=== PATIENT | female | born 1950 | race Caucasian/White ===

== ENCOUNTER 2016-11-26 06:55 | Inpatient (IN) | payer OTHER ==
[~2016-11-26] VITALS: Ht 170.2 cm; Wt 132.0 kg
[~2016-11-26 06:55] MED LIST: ACTOS15 MG PO; ASPIRIN81 M2 PO; BACTROBAN NASAL1 G1 BOTH NARES; CELEBREX200 MG PO; CELECOXIB200 MG PO; ENDOCET 5-3251 EACH PO; FERROUS SULFAT325 MG PO; FLEXERIL10 MG PO; HYDROCHLOROTHIA25 MG PO; HYDROCODON-ACE1 EAC7 PO; IRON325 M1 PO; KLOR-CON M2020 MEQ PO; LEXAPRO20 MG PO; LIPITOR80 MG PO; LISINOPRIL10 MG PO; LO-DOSE ASPIRIN81 M2 PO; LORCET 5-325 M1 EACH PO; LOVENOX40 MG/0.4 SC; METFORMIN HCL500 MG PO; METOPROLOL TAR100 MG PO; NEXIUM40 MG PO; OXYCODONE-ACET1 EACH PO; SYNTHROID125 MCG PO; SYNTHROID150 MCG PO; ZANTAC150 MG PO; ZETIA10 MG PO
[2016-11-26 07:33] LABS: POINT-OF-CARE METER ID UU14174212
[2016-11-26 07:44] VITALS: BP 162/72
[2016-11-26 12:40] LABS: POINT-OF-CARE METER ID UU13113675; POINT-OF-CARE USER ID 515036437
[2016-11-26 13:28] VITALS: BP 149/67
[2016-11-26 13:28] LABS: HEMATOCRIT 36.7 % (36.0-46.0); MCH 28.8 PG (29.0-34.0); MCHC 31.3 G/DL (30.0-36.0); MEAN PLAT.VOLUME 11.5 uM^3 (9.5-12.4); PLATELET COUNT 124 K/uL (156-360); RBC DIS.WIDTH-CV 13.9 % (11.8-14.6); RBC DIS.WIDTH-SD 47.1 % (39-53); RED BLOOD COUNT 3.99 M/uL (3.80-5.20); WHITE BLOOD COUNT 7.2 K/uL (4.1-10.2)
[2016-11-26 15:34] VITALS: BP 182/8
[2016-11-26 15:56] VITALS: BP 182/80
[2016-11-26 20:21] VITALS: BP 173/77
[2016-11-26 22:11] LABS: POINT-OF-CARE METER ID UU13113712
[2016-11-27 00:30] VITALS: BP 170/83
[2016-11-27 04:00] VITALS: BP 179/78
[2016-11-27 05:37] LABS: MCV 90.3 FL (83-99)
[2016-11-27 05:58] LABS: ANION GAP 12 MEQ/L (2-14); CHLORIDE 103 MEQ/L (99-109); GFR ESTIMATE (CALCULATED) > 59 mL/min/; GLUCOSE 179 mg/dL (70-99); SAMPLE HEMOLYSIS CHECK 0; SAMPLE ICTERIC CHECK 0; SAMPLE LIPEMIA CHECK 0; SODIUM 138 MEQ/L (136-147); UREA NITROGEN (BUN) 6 mg/dL (9-23)
[2016-11-27 07:56] VITALS: BP 136/63
[2016-11-27 08:05] LABS: POINT-OF-CARE METER ID UU13113712
[2016-11-27 11:17] VITALS: BP 116/60
[2016-11-27 11:48] LABS: POINT-OF-CARE METER ID UU13113712
[2016-11-27 15:54] VITALS: BP 121/58
[2016-11-27 16:24] LABS: POINT-OF-CARE METER ID UU13113712
[2016-11-27 20:17] VITALS: BP 112/57
[2016-11-27 21:52] LABS: POINT-OF-CARE METER ID UU13113712
[2016-11-28] VITALS (7 sets, daily range): BP systolic 105–130; BP diastolic 50–72
[2016-11-28 04:44] LABS: HEMATOCRIT 37.8 % (36.0-46.0)
[2016-11-28 07:17] LABS: POINT-OF-CARE METER ID UU13113712
[2016-11-28] MEDS ORDERED: OXYCONTIN10 MG PO (08:41)
[2016-11-28] MEDS ORDERED: LOVENOX40 MG/0.4 SC (08:41)
[2016-11-28] MEDS ORDERED: OXYCODONE-APAP1 EACH PO ×2 (08:41→09:20)
[2016-11-28 11:32] LABS: POINT-OF-CARE METER ID UU13113712
[2016-11-28 16:43] LABS: POINT-OF-CARE METER ID UU13113712
[2016-11-28 23:42] LABS: POINT-OF-CARE METER ID UU14188577
[2016-11-29 00:21] VITALS: BP 115/53
[2016-11-29 07:35] LABS: POINT-OF-CARE METER ID UU14188577
[2016-11-29 08:03] VITALS: BP 133/60
[2016-11-29 11:41] LABS: POINT-OF-CARE METER ID UU14188577
[2016-11-29 12:05] VITALS: BP 98/51
== END 2016-11-29 13:10 | DRG 470 ==
LOC: 3WEST 06:55 → 2SOUTH 06:55 → 3WEST 12:57 → 2SOUTH 14:29 → 3EAST 11-28 18:01
PROVIDERS: Orthopaedic Surgery
PROC: 0SRD0J9 Replacement of Left Knee Joint with Synthetic Substitute, Cemented, Open Approach (ICD-10-PCS; principal; 2016-11-26)
DX: M17.12 Unilateral primary osteoarthritis, left knee (principal); I10 Essential (primary) hypertension; E11.9 Type 2 diabetes mellitus without complications; G47.30 Sleep apnea, unspecified; I25.10 Atherosclerotic heart disease of native coronary artery without angina pectoris; E78.5 Hyperlipidemia, unspecified; F32.9 Major depressive disorder, single episode, unspecified; E03.9 Hypothyroidism, unspecified; K21.9 Gastro-esophageal reflux disease without esophagitis; Z96.642 Presence of left artificial hip joint; Z96.651 Presence of right artificial knee joint; Z79.82 Long term (current) use of aspirin
CPT/HCPCS: 71010; 73560; 80048; 82948; 85014; 85018; 85027; 94799; J0131; J0690; J1170; J1650; J1815; J2250; J2405; J3370; J7050